=== PATIENT | female | born 1985 | race Caucasian/White ===

== ENCOUNTER 2021-08-23 15:41 | Emergency (ER) | payer MEDICAID ==
[~2021-08-23] VITALS: Ht 162.6 cm; Wt 99.1 kg
[2021-08-23] MEDS ORDERED: PB/HYOSCY/ATR/SCOP/LIDO/MAALOX 55 ML BOTTLE PO ONE (16:15)
[2021-08-23 16:46] VITALS: BP 110/72
== END 2021-08-23 16:52 | disposition home or self-care (01) ==
LOC: EMS 15:41
DX: T17.228A Food in pharynx causing other injury, initial encounter (principal); F12.90 Cannabis use, unspecified, uncomplicated; X58.XXXA Exposure to other specified factors, initial encounter; Y93.89 Activity, other specified; Y92.89 Other specified places as the place of occurrence of the external cause; Y99.8 Other external cause status
CPT/HCPCS: 99283

== ENCOUNTER 2022-12-02 13:58 | Emergency (ER) | payer MEDICAID ==
[~2022-12-02] VITALS: Ht 162.6 cm; Wt 95.9 kg
[2022-12-02 14:01] VITALS: BP 136/57
[2022-12-02] MEDS ORDERED: ALBU18HF12 IH (14:04)
[2022-12-02] MEDS ORDERED: PredniSONE 20 MG TABLET PO ONE (15:00)
[2022-12-02] MEDS ORDERED: IPRATROPIUM BROMIDE 0.5 MG/2.5 ML NEB SOLUTION NEB ONE (15:00)
[2022-12-02] MEDS ORDERED: ALBUTEROL SULFATE 2.5 MG/0.5 ML NEB SOLUTION NEB ONE (15:00)
[2022-12-02] MEDS ORDERED: PRED-554 PO (16:14)
[2022-12-02] MEDS ORDERED: AUD NEB (16:14)
== END 2022-12-02 16:25 | disposition home or self-care (01) ==
LOC: EMS 14:00
DX: J45.909 Unspecified asthma, uncomplicated (principal); F12.90 Cannabis use, unspecified, uncomplicated; Z98.890 Other specified postprocedural states
CPT/HCPCS: 99283; 94640; J7512